=== PATIENT | female | born 1955 | race American Indian/Alaskan Native ===

== ENCOUNTER 2020-09-14 09:22 | Inpatient (IN) | payer MEDICARE ==
[2020-09-14] MEDS ORDERED: DEXTROSE 50% IN WATER (25GM) 50 ML SYRINGE IV ONE ×2 (09:42→17:33)
--- NOTE | 2020-09-14 10:29 | XRay Report ---
CHEST 1 VIEW 09/14/2020 9:23 AM INDICATION / CLINICAL INFORMATION: sob. COMPARISON: None available. FINDINGS: SUPPORT DEVICES: None. HEART / MEDIASTINUM: Cardiomegaly LUNGS / PLEURA: Increased opacity with infiltrate within the right lower lung and right middle lobe N o pneumothorax. Signer Name: Cj Lakhani MD Signed: 09/14/2020 10:25 AM Workstation Name: [id number]
--- NOTE | 2020-09-14 10:37 | Emergency Department Report ---
ED Shortness of Breath HPI - General Chief Complaint: Dyspnea/Respdistress Stated Complaint: WEAKNESS,LOW BLOOD SUGAR Time Seen by Provider: 09/14/20 09:52 Source: patient, EMS Mode of arrival: Stretcher Limitations: Other - History of Present Illness Initial Comments: 65-year-old female, history of hypertension, diabetes, CHF, CAD with coronary bypass, possible A. fib, presents to ED with shortness of breath. Patient transported to the ED via EMS. Accu-Chek was 46, half amp of D50 was given. They were unable to obtain a room air O2 sat. Wheezing was reported by EMS. Patient was given albuterol 5 mg nebulizer treatment prior to arrival. Patient reports 4-day history of cough, shortness of breath, chest pain, vomiting, generalized weakness. She denies fever. She reports loss of smell and taste. Patient states she did not get the COVID-19 vaccine. According to her daughter, patient was recently seen at [facility], possibly 1 week ago, for similar symptoms. Daughter reports her mother drinks alcohol somewhat heavily, also smokes cigarettes. Upon ED arrival, we placed patient on BiPAP. Repeat Accu- Chek was 48, 1 amp of D50 given. MD Complaint: shortness of breath -: days(s) (4) Severity: moderate Consistency: constant Improves With: nothing Worsens With: exertion Known History Of: COPD, congestive heart failure Associated Symptoms: cough Treatments Prior to Arrival: bronchodilator - Related Data Home Oxygen Therapy: No Allergies Allergy/AdvReac Type Severity Reaction Status Date / Time Penicillins Allergy Anaphylaxis Verified 09/14/20 10:15 ED Review of Systems ROS: Stated complaint: WEAKNESS,LOW BLOOD SUGAR Other details as noted in HPI Comment: All other systems reviewed and negative Constitutional: denies: fever ENT: other (Reports loss of smell and taste) Respiratory: cough, shortness of breath Cardiovascular: chest pain Gastrointestinal: vomiting. denies: diarrhea ED Past Medical Hx - Past Medical History Previous Medical History?: Yes Hx Heart Attack/AMI: Yes Hx Congestive Heart Failure: Yes Hx COPD: Yes - Surgical History Past Surgical History?: Yes Additional Surgical History: Bypass - Social History Smoking Status: Never Smoker ED Physical Exam - General Limitations: Other General appearance: alert - Head Head exam: Present: atraumatic, normocephalic - Eye Eye exam: Present: normal appearance, EOMI - ENT ENT exam: Present: mucous membranes moist - Neck Neck exam: Present: normal inspection - Respiratory Respiratory exam: Present: respiratory distress, decreased breath sounds, other (Tachypnea present) - Cardiovascular Cardiovascular Exam: Present: tachycardia, irregular rhythm - GI/Abdominal GI/Abdominal exam: Present: soft. Absent: distended, tenderness - Extremities Exam Extremities exam: Present: other (1+ pitting edema BLE) - Neurological Exam Neurological exam: Present: alert, oriented X3 - Psychiatric Psychiatric exam: Present: normal affect, normal mood - Skin Skin exam: Present: warm, dry, intact, normal color ED Course Vital Signs 09/14/20 09/14/20 09/14/20 09:32 09:39 09:46 Temperature Pulse Rate 105 H 116 H Respiratory 20 18 Rate Blood Pressure 119/93 119/93 119/93 O2 Sat by Pulse 93 95 Oximetry 09/14/20 09/14/20 09/14/20 09:56 10:00 10:16 Temperature 94.9 F L Pulse Rate 103 H 102 H Respiratory 17 18 Rate Blood Pressure 90/63 90/63 O2 Sat by Pulse Oximetry 09/14/20 09/14/20 09/14/20 10:22 11:00 12:51 Temperature Pulse Rate 98 H Respiratory 15 Rate Blood Pressure 121/95 O2 Sat by Pulse 89 98 96 Oximetry - Reevaluation(s) Reevaluation #1: 09/14/20 12:00 Went in re-evaluate patient and she was found to be more lethargic, less arousable. Accu-Chek was done. Glucose found to be 79. Patient has not been registering a reliable pulse ox reading, so ABG was ordered. RT has been unable to obtain an ABG. Due to altered mental status, will intubate the patient. Reevaluation #2: 09/14/20 13:17 Patient was moving into room 22 for intubation. She was found to have a heart rate in the 40s as we were bagging her with a BVM. Patient was given one amp of atropine and then intubated without any additional drugs. Following intubation, patient was pulseless, so ACLS was initiated. Patient received one round of ACLS. She was given epi x1 and sodium bicarb x2, given her bicarb of 7 on her BMP. - Central Line Placement Right Femoral Consent Obtained: verbal consent Time Out Performed: Yes Patient Placed on Monitor/Pulse Ox: Yes MD Prep: mask, gown, gloves Central Line Prep: Chlorhexidine scrub Ultrasound Used for Placement: Yes Central Line Lumen Inserted: triple Reason for Insertion: Volume Resuscitation Bloods Obtained for Lab: No Central Line Position: good blood return, all ports aspirated, flus, sutured in place with nyl Dressing Applied: Tegaderm Patient Tolerated Procedure: well Complications: none - Intubation Time Out Performed: Yes Sedative: none Laryngoscope: fiberoptic video scope Size: 3 ET Tube Size: 7.5 Tube Secured Depth (cm): 22 Tube Secured Location: teeth Tube Placement Confirmation: visualized tube passing t, equal breath sounds bilat, no breath sounds over epi, confirmation by capnometr Patient Tolerated Procedure: well Intubation Complications: none ED Medical Decision Making - Lab Data Result diagrams: 09/14/20 10:41 09/14/20 14:00 - EKG Data -: EKG Interpreted by Sc EKG shows normal: axis, ST-T waves Rate: normal - EKG Data Interpretation: other (Atrial fibrillation; intraventricular conduction delay) - Radiology Data Radiology results: report reviewed, image reviewed - Medical Decision Making 65-year-old female presents to ED with shortness of breath and hyperglycemia. She also reports 4-day history of cough, vomiting, chest pain, loss of smell and taste. Initial chest x-ray showed infiltrates in the right middle and lower lobes. Patient was given Levaquin and placed on Covid precautions. WBCs are normal. Lactic acid elevated at 19. Patient given 30/kg sepsis dosing of IV fluids. Patient had a mental status decline and decision was made to intubate. Patient was bradycardic and received 1 amp of atropine. She then briefly lost pulses and went into cardiac arrest. 1 round of ACLS was performed with administration of epinephrine x1 and sodium bicarb x2. Patient had ROSC afterward. She was hypotensive and placed on Levophed drip. Propofol was ordered for sedation. Remainder of labs show evidence of liver failure, coagulopathy, renal insufficiency. ABG result that is in the chart is most likely a venous sample per respiratory therapist. Patient will be admitted by Dr. Albert, hospitalist, for further management. - Differential Diagnosis CHF, pneumonia, COVID Critical Care Time: Yes Critical care time in (mins) excluding proc time.: 35 Critical care attestation.: If time is entered above; I have spent that time in minutes in the direct care of this critically ill patient, excluding procedure time. Critical Care Time: 35 min ED Disposition Clinical Impression: Hypoglycemia, Acute respiratory failure, Cardiac arrest, Pneumonia, Suspected COVID-19 virus infection, Sepsis, Renal insufficiency, Elevated liver enzymes, Coagulopathy, Metabolic acidosis Disposition: 09 OP ADMIT IP TO THIS HOSP Is pt being admited?: Yes Condition: Stable Time of Disposition: 14:11
[2020-09-14] MEDS ORDERED: dexAMETHasone 4 MG/ML VIAL IV ONE (10:40)
[2020-09-14 11:02] LABS: Mean Corpuscular HGB Conc 29 % (30-34); Mean Corpuscular Volume 104 fl (79-97); Platelet Count 165 K/mm3 (140-440); Red Blood Count 4.09 M/mm3 (3.65-5.03); Red Cell Distribution Width 17.4 % (13.2-15.2)
[2020-09-14 11:15] LABS: Hematocrit 42.4 % (30.3-42.9); Hemoglobin 12.1 gm/dl (10.1-14.3)
[2020-09-14 11:20] LABS: Albumin 3.3 g/dL (3.9-5); Calcium 8.7 mg/dL (8.4-10.2)
[2020-09-14] MEDS ORDERED: ETOMIDATE 20 MG/10 ML INJ IV ONE (12:20)
[2020-09-14] MEDS ORDERED: SUCCINYLCHOLINE CHLORIDE 200 MG/10 ML INJ MDV ONE (12:21)
[2020-09-14] MEDS ORDERED: SODIUM CHLORIDE 0.9% 1000 ML 2,000 ML ONE (12:32)
[2020-09-14] MEDS ORDERED: NORepinephrine/NS 4 MG-250 ML 4 MG/250 ML BAG IV ONE (12:48)
[2020-09-14 13:07] LABS: Chol/HDL Ratio 3.9 %
[2020-09-14] MEDS ORDERED: SODIUM CHLORIDE 0.9% 1000 ML IV SOLN IV ONE (13:11)
--- NOTE | 2020-09-14 13:42 | XRay Report ---
CHEST 1 VIEW INDICATION: post intubation. COMPARISON: Earlier today at 1020 hours FINDINGS: Support devices: An endotracheal tube has been inserted which terminates 6.6 cm superior to the nettie a. Consider advancement by 2 cm. A nasogastric tube has been inserted which is followed to the fundus of the stomach but the distal tip is cut off the [id number]. Heart: Stable cardiomegaly with valvuloplasty. Lungs/Pleura: Subtle infiltration is identified throughout the right lung which could represent conge stive changes or infiltrate. The left lung is generally clear. No pleural effusion or pneumothorax. Additional findings: None. IMPRESSION: Consider advancement of the endotracheal tube by 2 cm as described. Stable cardiomegaly. Subtle infiltration in the right lung most consistent with congestive changes or less likely infiltra te. Signer Name: Saul Marley Jr, MD Signed: 09/14/2020 1:37 PM Workstation Name: [id number]
[2020-09-14 14:21] LABS: Anisocytosis 1+; Band Neutrophils # (Manual) 0.3 K/mm3; Macrocytosis 1+; Myelocytes # (Manual) 0.1 K/mm3; Platelet Estimate Consistent w Auto; Total Cells Counted 100
[2020-09-14 14:40] LABS: INR 4.89 (0.87-1.13)
[2020-09-14] MEDS ORDERED: DOPamine/D5W 800 MG/250 ML 800 MG/250 ML BAG IV ONE (14:53)
--- NOTE | 2020-09-14 15:32 | History and Physical Report ---
History of Present Illness Date of examination: 09/14/20 Date of admission: 09/14/20 14:11 Chief complaint: Shortness of breath and altered sensorium for 1 day History of present illness: 65-year-old -Citizen Of [place] female with history of hypertension, coronary jeanne ry disease, s/p CABG, and COPD brought in by EMS for severe shortness of breath. Patient has been short of breath for the last 3 days as per the daughter who works in the [facility]. Patient has been chronically short of breath for 2 months but was worse for the last 3 days and shortness of breath on minimal exertion and orthopnea present. Patient has not taken Covid vaccination. As per daughter the patient has some loss of smell and taste. No fever. Generalized weakness present. In the EMS patient had a low blood glucose of 46 and was given D50 W half ampule. With patient blood glucose level came up. In the emergency room patient was very lethargic and altered sensorium and very short of breath because of which patient was intubated by the ER physician. Patient was started on IV Levophed for low blood pressure. Her main problem is shortness of breath for the last 2 to 3 days and also fever and cough. - Past Medical History Previous Medical History?: Yes --Heart Attack/AMI: Yes --Congestive Heart Failure: Yes --COPD: Yes - Surgical History Past Surgical History?: Yes Additional Surgical History: Bypass - Social History Smoking Status: Never Smoker -Family history htn Review of Systems ROS: Constitutional fever HEENT no sore throat no post nasal drip no diplopia Neck no neck stiffness no lymph gland enlargement Chest and lungs cough and fever CVS shortness of breath at rest and orthopnea Genitourinary system no dysuria no flank pain Musculoskeletal system no muscle pains no joint pains [employer] MACHINE OPERATOR altered sensorium Skin no rash no itching Psychiatric no depression no homicidal or suicidal tendencies Hematologic no lymphedema or bruising Endocrine no polydipsia no polyuria no cold intolerance no heat intolerance Medications and Allergies Allergies Allergy/AdvReac Type Severity Reaction Status Date / Time Penicillins Allergy Anaphylaxis Verified 09/14/20 10:15 Active Meds: Active Medications Norepinephrine (Levophed Drip 4 Mg/Ns 250 Ml) 4 mg in 250 mls @ 7.5 mls/hr IV TITR LAMAR; Protocol Propofol (Diprivan 10 Mg/Ml) 1,000 mg in 100 mls @ 2.994 mls/hr IV TITR LAMAR; Protocol Sodium Bicarbonate 150 meq/ (Dextrose) 1,150 mls @ 125 mls/hr IV DIRECT LAMAR Exam - Physical Exam Narrative exam: Patient is intubated and on vent - Constitutional Vitals: Temp Pulse Resp BP Pulse Ox 94.9 F L 98 H 15 121/95 96 09/14/20 09:56 09/14/20 11:00 09/14/20 11:00 09/14/20 11:00 09/14/20 12:51 General appearance: Present: severe distress, well-nourished - EENT Eyes: Present: PERRL ENT: hearing intact, clear oral mucosa - Neck Neck: Present: supple, normal ROM - Respiratory Respiratory effort: normal Respiratory: bilateral: CTA - Cardiovascular Heart rate: 98 Rhythm: regular Heart Sounds: Present: S1 & S2. 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 Should be admitted Results - Labs CBC & Chem 7: 09/15/20 05:44 09/14/20 21:39 Labs: Laboratory Last Values WBC 7.9 K/mm3 (4.5-11.0) 09/14/20 10:41 RBC 4.09 M/mm3 (3.65-5.03) 09/14/20 10:41 Hgb 12.1 gm/dl (10.1-14.3) 09/14/20 10:41 Hct 42.4 % (30.3-42.9) 09/14/20 10:41 MCV 104 fl (79-97) H 09/14/20 10:41 MCH 30 pg (28-32) 09/14/20 10:41 MCHC 29 % (30-34) L 09/14/20 10:41 RDW 17.4 % (13.2-15.2) H 09/14/20 10:41 Plt Count 165 K/mm3 (140-440) 09/14/20 10:41 Add Manual Diff Complete 09/14/20 10:41 Total Counted 100 09/14/20 10:41 Seg Neuts % (Manual) 81.0 % (40.0-70.0) H 09/14/20 10:41 Band Neutrophils % 4.0 % 09/14/20 10:41 Lymphocytes % (Manual) 10.0 % (13.4-35.0) L 09/14/20 10:41 Monocytes % (Manual) 1.0 % (0.0-7.3) 09/14/20 10:41 Eosinophils % (Manual) 2.0 % (0.0-4.3) 09/14/20 10:41 Basophils % (Manual) 1.0 % (0.0-1.8) 09/14/20 10:41 Myelocytes % 1.0 % 09/14/20 10:41 Nucleated RBC % Not Reportable 09/14/20 10:41 Seg Neutrophils # Man 6.4 K/mm3 (1.8-7.7) 09/14/20 10:41 Band Neutrophils # 0.3 K/mm3 09/14/20 10:41 Lymphocytes # (Manual) 0.8 K/mm3 (1.2-5.4) L 09/14/20 10:41 Abs React Lymphs (Man) 0.0 K/mm3 09/14/20 10:41 Monocytes # (Manual) 0.1 K/mm3 (0.0-0.8) 09/14/20 10:41 Eosinophils # (Manual) 0.2 K/mm3 (0.0-0.4) 09/14/20 10:41 Basophils # (Manual) 0.1 K/mm3 (0.0-0.1) 09/14/20 10:41 Metamyelocytes # 0.0 K/mm3 09/14/20 10:41 Myelocytes # 0.1 K/mm3 09/14/20 10:41 Promyelocytes # 0.0 K/mm3 09/14/20 10:41 Blast Cells # 0.0 K/mm3 09/14/20 10:41 WBC Morphology Not Reportable 09/14/20 10:41 Hypersegmented Neuts Not Reportable 09/14/20 10:41 Hyposegmented Neuts Not Reportable 09/14/20 10:41 Hypogranular Neuts Not Reportable 09/14/20 10:41 Smudge Cells Not Reportable 09/14/20 10:41 Toxic Granulation Not Reportable 09/14/20 10:41 Toxic Vacuolation Not Reportable 09/14/20 10:41 Dohle Bodies Not Reportable 09/14/20 10:41 Pelger-Huet Anomaly Not Reportable 09/14/20 10:41 Bukc Rods Not Reportable 09/14/20 10:41 Platelet Estimate Consistent w auto 09/14/20 10:41 Clumped Platelets Not Reportable 09/14/20 10:41 Plt Clumps, EDTA Not Reportable 09/14/20 10:41 Large Platelets Not Reportable 09/14/20 10:41 Giant Platelets Not Reportable 09/14/20 10:41 Platelet Satelliting Not Reportable 09/14/20 10:41 Plt Morphology Comment Not Reportable 09/14/20 10:41 RBC Morphology Not Reportable 09/14/20 10:41 Dimorphic RBCs Not Reportable 09/14/20 10:41 Polychromasia Not Reportable 09/14/20 10:41 Hypochromasia Not Reportable 09/14/20 10:41 Poikilocytosis Not Reportable 09/14/20 10:41 Anisocytosis 1+ 09/14/20 10:41 Microcytosis Not Reportable 09/14/20 10:41 Macrocytosis 1+ 09/14/20 10:41 Spherocytes Not Reportable 09/14/20 10:41 Pappenheimer Bodies Not Reportable 09/14/20 10:41 Sickle Cells Not Reportable 09/14/20 10:41 Target Cells Not Reportable 09/14/20 10:41 Tear Drop Cells Not Reportable 09/14/20 10:41 Ovalocytes Not Reportable 09/14/20 10:41 Helmet Cells Not Reportable 09/14/20 10:41 [place] Bodies Not Reportable 09/14/20 10:41 Rickman Rings Not Reportable 09/14/20 10:41 Shai Cells Not Reportable 09/14/20 10:41 Bite Cells Not Reportable 09/14/20 10:41 Crenated Cell Not Reportable 09/14/20 10:41 Elliptocytes Not Reportable 09/14/20 10:41 Acanthocytes (Spur) Not Reportable 09/14/20 10:41 Rouleaux Not Reportable 09/14/20 10:41 Hemoglobin C Crystals Not Reportable 09/14/20 10:41 Schistocytes Not Reportable 09/14/20 10:41 Malaria parasites Not Reportable 09/14/20 10:41 Phil Bodies Not Reportable 09/14/20 10:41 Hem Pathologist Commnt No 09/14/20 10:41 PT 45.5 Sec. (12.2-14.9) H 09/14/20 14:00 INR 4.89 (0.87-1.13) H 09/14/20 14:00 APTT 47.4 Sec. (24.2-36.6) H 09/14/20 10:41 Sodium 136 mmol/L (137-145) L 09/14/20 14:00 Potassium 3.8 mmol/L (3.6-5.0) 09/14/20 14:00 Chloride 91.3 mmol/L (98-107) L 09/14/20 14:00 Carbon Dioxide 6 mmol/L (22-30) L* 09/14/20 14:00 Anion Gap 43 mmol/L 09/14/20 14:00 BUN 15 mg/dL (7-17) 09/14/20 14:00 Creatinine 2.3 mg/dL (0.6-1.2) H 09/14/20 14:00 Estimated GFR 26 ml/min 09/14/20 14:00 BUN/Creatinine Ratio 7 % 09/14/20 14:00 Glucose 100 mg/dL (65-100) 09/14/20 14:00 POC Glucose 85 mg/dL (70-105) 09/14/20 12:46 Lactic Acid 19.70 mmol/L (0.7-2.0) H* 09/14/20 14:00 Calcium 8.0 mg/dL (8.4-10.2) L 09/14/20 14:00 Total Bilirubin 3.20 mg/dL (0.1-1.2) H 09/14/20 10:41 AST 226 units/L (5-40) H 09/14/20 10:41 ALT 105 units/L (7-56) H 09/14/20 10:41 Alkaline Phosphatase 149 units/L (35-129) H 09/14/20 10:41 Ammonia 301.0 umol/L (25-60) H 09/14/20 14:00 Troponin T 0.034 ng/mL (0.00-0.029) H 09/14/20 10:41 NT-Pro-B Natriuret Pep 89389 pg/mL (0-900) H 09/14/20 10:41 Total Protein 6.4 g/dL (6.3-8.2) 09/14/20 10:41 Albumin 3.3 g/dL (3.9-5) L 09/14/20 10:41 Albumin/Globulin Ratio 1.1 % 09/14/20 10:41 Triglycerides 168 mg/dL (2-149) H 09/14/20 10:41 Cholesterol 117 mg/dL (50-199) 09/14/20 10:41 LDL Cholesterol Direct 98 mg/dL (50-130) 09/14/20 10:41 HDL Cholesterol 30 mg/dL (40-59) L 09/14/20 10:41 Cholesterol/HDL Ratio 3.90 % 09/14/20 10:41 Lipase 15 units/L (13-60) 09/14/20 10:41 Microbiology: Microbiology 09/14/20 10:41 Peripheral/Venous Blood Culture - Preliminary Culture in Progress 09/14/20 10:41 Peripheral/Venous Blood Culture - Preliminary Culture in Progress - Imaging and Cardiology EKG: report reviewed (Atrial fibrillation heart rate of 97/min) Chest x-ray: report reviewed Imaging and Cardiology: Chest x-ray Increased opacity with infiltrate within the right lower lung and right middle lobe. No pneumothorax. Contrast radiology report occurs Assessment and Plan Assessment and plan: Critical care statement The high probability OF a clinically significant sudden or life-threatening dete rioration of the cardiorespiratory system and endocrine system required my full and direct attention, intervention and postoperative management. The aggregate critical care time was 40 minutes. The time is in addition to time spent performing reported procedures but includes the followin: Data review and interpretation 2: Patient assessment and monitoring of vital signs 3: Documentation 4:: Medication orders and management Advance Directives: Yes (Full code) VTE prophylaxis?: Chemical Plan of care discussed with patient/family: Yes - Patient Problems (1) Septic shock Current Visit: Yes Status: Acute Plan to address problem: Patient on IV cefepime IV vancomycin and Levophed Poor prognosis because of ulcer and deterioration over 1 day and severe metabolic acidosis (2) DIC (disseminated intravascular coagulation) Current Visit: Yes Status: Acute Plan to address problem: Patient is a high PT/INR INR I will lower GI bleed Possible DIC Heme-onc emergently consulted Transfuse as necessary Poor prognosis (3) Acute respiratory failure with hypoxia Current Visit: Yes Status: Acute Plan to address problem: Multifactorial. Secondary to right-sided pneumonia and underlying CHF and COPD IV antibiotics and IV diuretics for now Rule out Covid pneumonia (4) Right lower lobe pneumonia Current Visit: Yes Status: Acute Plan to address problem: Possible aspiration Patient started on broad-spectrum antibiotics IV cefepime and IV vancomycin (5) Metabolic acidosis Current Visit: Yes Status: Acute Plan to address problem: Treatment of sepsis should improve the metabolic acidosis Bicarb drip initiated (6) Suspected COVID-19 virus infection Current Visit: Yes Status: Acute Plan to address problem: Coronavirus PCR requested (7) Hypotension Current Visit: Yes Status: Acute Plan to address problem: On Levophed and dopamine (8) Hypoglycemia Current Visit: Yes Status: Acute Plan to address problem: Sepsis may be the cause of hypoglycemia D5W normal saline as IV and fluids at 75 cc an hour (9) Elevated liver enzymes Current Visit: Yes Status: Acute Plan to address problem: Transaminitis probably secondary to shock liver AST is 226, ALT is 103 total bili 3.2 and alk phos is around 140. (10) Hyponatremia Current Visit: Yes Status: Acute Plan to address problem: Patient on normal saline for now. To monitor closely in view of CHF (11) Hypothermia Current Visit: Yes Status: Acute Qualifiers: Encounter type: initial encounter Qualified Code(s): T68.XXXA - Hypothermia, initial encounter Plan to address problem: Secondary to sepsis Prognosis is poor (12) Congestive heart failure Current Visit: Yes Status: Acute Plan to address problem: echocardiogram for ejection fraction Lasix as needed (13) DVT prophylaxis Current Visit: Yes Status: Acute Plan to address problem: On heparin and GI prophylaxis
[2020-09-14] MEDS ORDERED: SODIUM BICARBONATE 150 MEQ in DEXTROSE 5% IN WATER 1,000 ML IV SCH (16:00)
[2020-09-14] MEDS ORDERED: MORPHINE 2 MG/1 ML INJ IV PRN (17:30)
[2020-09-14] MEDS ORDERED: ONDANSETRON 4 MG/2 ML INJ IV PRN (17:30)
[2020-09-14] MEDS ORDERED: ACETAMINOPHEN 325 MG TAB PO PRN (17:30)
[2020-09-14] MEDS ORDERED: METOCLOPRAMIDE 10 MG/2 ML INJ IV PRN (17:30)
[2020-09-14] MEDS ORDERED: HYDROmorphone 1 MG/1 ML INJ IV PRN (17:30)
[2020-09-14] MEDS ORDERED: IPRATROPIUM/ALBUTEROL SULFATE 3 ML AMPUL.NEB IH PRN (17:39)
[2020-09-14 17:43] LABS: Bacteria,Urine 2+ /HPF (Negative); Bilirubin,Urine NEG (Negative); Blood,Urine LG (Negative); Color,Urine Red (Yellow)
[2020-09-14] MEDS ORDERED: ALBUTEROL 2.5 MG/3 ML NEBU IH PRN (17:44)
[2020-09-14 17:49] LABS: Protein,Urine >500 mg/dL (Negative); RBC,Urine > 182.0 /HPF (0.0-6.0)
[2020-09-14 17:50] LABS: WBC,Urine > 182.0 /HPF (0.0-6.0)
[2020-09-14] MEDS ORDERED: D5W/0.9% NACL 1,000 ML IV SCH (18:00)
[2020-09-14] MEDS ORDERED: CEFEPIME/NS 1 GM/100 ML 1 GM/100 ML BAG IV SCH (18:00)
[2020-09-14 19:11] LABS: Mean Corpuscular HGB Conc 27 % (30-34); Mean Corpuscular Volume 110 fl (79-97); Platelet Count 137 K/mm3 (140-440); Red Blood Count 4.47 M/mm3 (3.65-5.03); Red Cell Distribution Width 17.7 % (13.2-15.2)
[2020-09-14 19:19] LABS: Hematocrit 49.1 % (30.3-42.9); Hemoglobin 13.1 gm/dl (10.1-14.3)
[2020-09-14 19:37] LABS: Albumin 2.7 g/dL (3.9-5)
[2020-09-14 20:00] LABS: Myelocytes # (Manual) 0.7 K/mm3; Total Cells Counted 100
[2020-09-14 20:01] LABS: Anisocytosis 1+; Toxic Granulation 2+; Toxic Vacuolation 1+
[2020-09-14 20:02] LABS: Platelet Estimate Consistent w Auto
[2020-09-14] MEDS ORDERED: SODIUM CHLORIDE 0.9% 1000 ML 1,000 ML ONE (21:09)
[2020-09-14] MEDS ORDERED: PHENYLEPHRINE 10 MG/1 ML INJ SDV IV SCH (21:30)
[2020-09-14] MEDS ORDERED: PHENYLEPHRINE 100 MG in SODIUM CHLORIDE 0.9% 90 ML IV ONE (21:33)
--- NOTE | 2020-09-14 21:50 | Event Note ---
Date: 09/14/20 Patient was coded at 9:21 PM. Patient was found unresponsive CPR was given as per ACLS protocol. 2 epi was given. Patient is on bicarb drip. Patient regained pulse 58 and BP was 90/50. Patient has rectal bleeding. Patient was put on Levophed, vasopressin and neodrip. Patient was put on bicarb and Protonix drip. GI is consulted. CBC CMP PT/INR ABG is ordered. Prognosis is guarded. Case discussed with that daughter Rancho and explained about the poor prognosis of the patient that patient is dropping heartbeat and blood pressure and patient can . She understands everything but she wants everything to be done. Patient is a full code. Case discussed with critical care.
[2020-09-14] MEDS: VASOPRESSIN 20 UNIT in SODIUM CHLORIDE 0.9% 100 ML IV SCH (21:53)
[2020-09-14] MEDS ORDERED: PANTOPRAZOLE 40 MG INJ IV SCH (22:00)
[2020-09-14] MEDS ORDERED: HEPARIN 5,000 UNIT/1 ML VIAL SUB-Q SCH (22:00)
[2020-09-14] MEDS ORDERED: FAMOTIDINE 20 MG/2 ML INJ IV SCH (22:00)
[2020-09-14 22:02] LABS: Hematocrit 37.1 % (30.3-42.9); Hemoglobin 9.9 gm/dl (10.1-14.3); Mean Corpuscular HGB Conc 27 % (30-34); Mean Corpuscular Volume 108 fl (79-97); Platelet Count 114 K/mm3 (140-440); Red Blood Count 3.43 M/mm3 (3.65-5.03); Red Cell Distribution Width 17.5 % (13.2-15.2)
[2020-09-14 22:14] LABS: INR 13.56 (0.87-1.13)
[2020-09-14 22:15] LABS: Partial Thromboplastin Time 115.3 Sec. (24.2-36.6)
[2020-09-14] MEDS: PANTOPRAZOLE 80 MG in SODIUM CHLORIDE 0.9% 100 ML IV SCH (22:34)
[2020-09-14 22:59] LABS: Albumin 2.2 g/dL (3.9-5); Calcium 6.3 mg/dL (8.4-10.2)
[2020-09-14] MEDS ORDERED: PHYTONADIONE(ADULT ONLY) 10 MG in SODIUM CHLORIDE 0.9% 50 ML IV ONE (23:23)
[2020-09-14] MEDS ORDERED: EPINEPHrine 1 MG/1 ML 8 MG in SODIUM CHLORIDE 0.9% 250ML 242 ML IV SCH ×2 (23:45)
[2020-09-15] MEDS: DOPamine/D5W 800 MG/250 ML 800 MG/250 ML BAG IV SCH ×2 (00:14→06:31)
[2020-09-15] MEDS: NORepinephrine/NS 4 MG-250 ML 4 MG/250 ML BAG IV SCH ×4 (00:15→06:43)
[2020-09-15] MEDS ORDERED: SODIUM CHLORIDE 0.9% 1000 ML 1,000 ML ONE ×2 (00:49→05:13)
[2020-09-15] MEDS ORDERED: SODIUM CHLORIDE 0.9% 500 ML 500 ML ONE (01:00)
[2020-09-15 01:51] LABS: Hematocrit 39.8 % (30.3-42.9); Hemoglobin 10.8 gm/dl (10.1-14.3)
[2020-09-15] MEDS ORDERED: SODIUM CHLORIDE 0.9% 1000 ML IV SOLN IV ONE (02:36)
[2020-09-15] MEDS: ATROPINE 0.1% (1 MG/10 ML) CARDIAC SYRINGE IV PRN ×4 (02:50→04:33)
[2020-09-15] MEDS ORDERED: PHENYLEPHRINE 10 MG/1 ML INJ SDV IV SCH (03:30)
[2020-09-15] MEDS ORDERED: PHENYLEPHRINE 100 MG in SODIUM CHLORIDE 0.9% 90 ML IV SCH (03:45)
--- NOTE | 2020-09-15 04:04 | Hem/Onc Consultation ---
History of Present Illness - History of Present Illness HEME DATA REVIEW asked by Dr. Bills to review case for DIC picture since then s/pp code blue 65yo AA woman with CAD (s/p CABG) adm for SOb and confusion found to have impressive elevated liver enzymes and coagulopathy no overt bleeding; hypoglycemia found since admission intubated, now on vent, now s/p CPR DATA reviewed below: IMP: Shock liver, liver dysfunction not "DIC" but still severe coagulopathy r/o bacteremia REC: labs to include fibrinogen cosnider cryo transfusions for low fibrinogen Laboratory Last Values WBC 23.0 K/mm3 (4.5-11.0) H 09/14/20 21:30 Hgb 9.9 gm/dl (10.1-14.3) L D 09/14/20 21:30 Hct 37.1 % (30.3-42.9) D 09/14/20 21:30 Plt Count 114 K/mm3 (140-440) L 09/14/20 21:30 PT 98.0 Sec. (12.2-14.9) H 09/14/20 21:39 INR 13.56 (0.87-1.13) H* 09/14/20 21:39 APTT 115.3 Sec. (24.2-36.6) H* 09/14/20 21:39 Creatinine 2.7 mg/dL (0.6-1.2) H 09/14/20 21:39 Lactic Acid 19.40 mmol/L (0.7-2.0) H* 09/14/20 21:39 Total Bilirubin 2.70 mg/dL (0.1-1.2) H 09/14/20 21:39 AST 4007 units/L (5-40) H 09/14/20 21:39 ALT 1583 units/L (7-56) H 09/14/20 21:39 Alkaline Phosphatase 139 units/L (35-129) H 09/14/20 21:39 Ammonia 301.0 umol/L (25-60) H 09/14/20 14:00 Antibody Screen Negative 09/14/20 21:39 Medications and Allergies Allergies Allergy/AdvReac Type Severity Reaction Status Date / Time Penicillins Allergy Anaphylaxis Verified 09/14/20 10:15 Active Meds: Active Medications Acetaminophen (Acetaminophen 325 Mg Tab) 650 mg PO Q4H PRN PRN Reason: Pain MILD(1-3)/Fever >100.5/SNELL Albuterol (Albuterol 2.5 Mg/3 Ml Nebu) 2.5 mg IH Q3HRT PRN PRN Reason: Wheezing Atropine Sulfate (Atropine 0.1% (1 Mg/10 Ml) Cardiac Syringe) 1 mg IV PRN PRN PRN Reason: Bradycardia Last Admin: 09/15/20 02:50 Dose: 1 mg Documented by: Famotidine (Famotidine 20 Mg/2 Ml Inj) 10 mg IV BID LAMAR Hydromorphone HCl (Hydromorphone 1 Mg/1 Ml Inj) 0.5 mg IV Q3H PRN PRN Reason: Pain , Severe (7-10) Norepinephrine (Levophed Drip 4 Mg/Ns 250 Ml) 4 mg in 250 mls @ 7.5 mls/hr IV TITR LAMAR; Protocol Last Admin: 09/15/20 02:08 Dose: 30 mcg/min, 112.5 mls/hr Documented by: Propofol (Diprivan 10 Mg/Ml) 1,000 mg in 100 mls @ 2.994 mls/hr IV TITR LAMAR; Protocol Sodium Bicarbonate 150 meq/ (Dextrose) 1,150 mls @ 125 mls/hr IV DIRECT LAMAR Dopamine HCl/Dextrose (Intropin Drip 800 Mg/D5w 250 Ml) 800 mg in 250 mls @ 3.742 mls/hr IV TITR LAMAR; Protocol Last Admin: 09/15/20 00:14 Dose: 20 mcg/kg/min, 37.421 mls/hr Documented by: Dextrose/Sodium Chloride (D5ns) 1,000 mls @ 75 mls/hr IV DIRECT LAMAR Cefepime HCl (Cefepime/Ns 1 Gm/100 Ml) 1 gm in 100 mls @ 200 mls/hr IV Q12H LAMAR; Protocol Last Admin: 09/14/20 18:20 Dose: 200 mls/hr Documented by: Vasopressin 20 unit/ Sodium (Chloride) 101 mls @ 9.09 mls/hr IV TITR LAMAR; Protocol Last Admin: 09/14/20 21:53 Dose: 0.03 units/min, 9.09 mls/hr Documented by: Phenylephrine HCl 100 mg/ (Sodium Chloride) 100 mls @ 3 mls/hr IV TITR ONE; Protocol Stop: 09/16/20 06:52 Last Titration: 09/15/20 02:37 Dose: 330 mcg/min, 19.8 mls/hr Documented by: Pantoprazole Sodium 80 mg/ (Sodium Chloride) 100 mls @ 10 mls/hr IV DIRECT LAMAR Last Admin: 09/14/20 22:34 Dose: 8 mg/hr, 10 mls/hr Documented by: Epinephrine 8 mg/ Sodium (Chloride) 250 mls @ 0 mls/hr IV TITR LAMAR Last Admin: 09/15/20 00:16 Dose: 1 mls/hr Documented by: Phenylephrine HCl 100 mg/ (Sodium Chloride) 100 mls @ 3 mls/hr IV TITR LAMAR; Protocol Metoclopramide HCl (Metoclopramide 10 Mg/2 Ml Inj) 10 mg IV Q6H PRN PRN Reason: Nausea And Vomiting Morphine Sulfate (Morphine 2 Mg/1 Ml Inj) 2 mg IV Q4H PRN PRN Reason: Pain, Moderate (4-6) Ondansetron HCl (Ondansetron 4 Mg/2 Ml Inj) 4 mg IV Q3H PRN PRN Reason: Nausea And Vomiting Sodium Chloride (Sodium Chloride 0.9% 10 Ml Flush Syringe) 10 ml IV BID LAMAR Last Admin: 09/14/20 22:09 Dose: 10 ml Documented by: Sodium Chloride (Sodium Chloride 0.9% 10 Ml Flush Syringe) 10 ml IV PRN PRN PRN Reason: LINE FLUSH Exam - Constitutional Vitals: Last Vital Signs Temp 95.7 F L 09/14/20 23:48 Pulse 49 L 09/15/20 01:00 Resp 28 H 09/15/20 01:00 BP 126/60 09/15/20 01:00 Pulse Ox 84 09/15/20 01:00 Results - Labs lab Results: Laboratory Results - last 24 hr 09/14/20 09/14/20 09/14/20 01:42 09:40 10:40 WBC RBC Hgb 10.8 Hct 39.8 MCV MCH MCHC RDW Plt Count Add Manual Diff Total Counted Seg Neuts % (Manual) Band Neutrophils % Lymphocytes % (Manual) Monocytes % (Manual) Eosinophils % (Manual) Basophils % (Manual) Metamyelocytes % Myelocytes % Nucleated RBC % Seg Neutrophils # Man Band Neutrophils # Lymphocytes # (Manual) Abs React Lymphs (Man) Monocytes # (Manual) Eosinophils # (Manual) Basophils # (Manual) Metamyelocytes # Myelocytes # Promyelocytes # Blast Cells # WBC Morphology Hypersegmented Neuts Hyposegmented Neuts Hypogranular Neuts Smudge Cells Toxic Granulation Toxic Vacuolation Dohle Bodies Pelger-Huet Anomaly Buck Rods Platelet Estimate Clumped Platelets Plt Clumps, EDTA Large Platelets Giant Platelets Platelet Satelliting Plt Morphology Comment RBC Morphology Dimorphic RBCs Polychromasia Hypochromasia Poikilocytosis Anisocytosis Microcytosis Macrocytosis Spherocytes Pappenheimer Bodies Sickle Cells Target Cells Tear Drop Cells Ovalocytes Helmet Cells [place] Bodies [place] Rings [place] Cells Bite Cells Crenated Cell Elliptocytes Acanthocytes (Spur) Rouleaux Hemoglobin C Crystals Schistocytes Malaria parasites Phil Bodies Hem Pathologist Commnt PT INR APTT ABG pH POC ABG pCO2 POC ABG pO2 POC ABG HCO3 ABG O2 Saturation POC ABG Base Excess ABG Hemoglobin ABG Oxyhemoglobin ABG Methemoglobin ABG Sodium ABG Potassium ABG Chloride ABG Glucose Carboxyhemoglobin FiO2 % Sodium Potassium Chloride Carbon Dioxide Anion Gap BUN Creatinine Estimated GFR BUN/Creatinine Ratio Glucose POC Glucose 48 L 179 H Hemoglobin A1c Lactic Acid Calcium Total Bilirubin AST ALT Alkaline Phosphatase Ammonia Troponin T NT-Pro-B Natriuret Pep Total Protein Albumin Albumin/Globulin Ratio Triglycerides Cholesterol LDL Cholesterol Direct HDL Cholesterol Cholesterol/HDL Ratio Lipase Arterial Blood Glucose Arterial Blood Ionized Calcium Urine Color Urine Turbidity Urine pH Ur Specific [place] Urine Protein Urine Glucose (UA) Urine Ketones Urine Blood Urine Nitrite Urine Bilirubin Urine Urobilinogen Ur Leukocyte Esterase Urine WBC (Auto) Urine RBC (Auto) U Epithel Cells (Auto) Urine Bacteria (Auto) Urine WBC Clumps Blood Type Antibody Screen 09/14/20 09/14/20 09/14/20 10:41 10:41 10:41 WBC 7.9 RBC 4.09 Hgb 12.1 Hct 42.4 MCV 104 H MCH 30 MCHC 29 L RDW 17.4 H Plt Count 165 Add Manual Diff Complete Total Counted 100 Seg Neuts % (Manual) 81.0 H Band Neutrophils % 4.0 Lymphocytes % (Manual) 10.0 L Monocytes % (Manual) 1.0 Eosinophils % (Manual) 2.0 Basophils % (Manual) 1.0 Metamyelocytes % Myelocytes % 1.0 Nucleated RBC % Not Reportable Seg Neutrophils # Man 6.4 Band Neutrophils # 0.3 Lymphocytes # (Manual) 0.8 L Abs React Lymphs (Man) 0.0 Monocytes # (Manual) 0.1 Eosinophils # (Manual) 0.2 Basophils # (Manual) 0.1 Metamyelocytes # 0.0 Myelocytes # 0.1 Promyelocytes # 0.0 Blast Cells # 0.0 WBC Morphology Not Reportable Hypersegmented Neuts Not Reportable Hyposegmented Neuts Not Reportable Hypogranular Neuts Not Reportable Smudge Cells Not Reportable Toxic Granulation Not Reportable Toxic Vacuolation Not Reportable Dohle Bodies Not Reportable Pelger-Huet Anomaly Not Reportable Buck Rods Not Reportable Platelet Estimate Consistent w auto Clumped Platelets Not Reportable Plt Clumps, EDTA Not Reportable Large Platelets Not Reportable Giant Platelets Not Reportable Platelet Satelliting Not Reportable Plt Morphology Comment Not Reportable RBC Morphology Not Reportable Dimorphic RBCs Not Reportable Polychromasia Not Reportable Hypochromasia Not Reportable Poikilocytosis Not Reportable Anisocytosis 1+ Microcytosis Not Reportable Macrocytosis 1+ Spherocytes Not Reportable Pappenheimer Bodies Not Reportable Sickle Cells Not Reportable Target Cells Not Reportable Tear Drop Cells Not Reportable Ovalocytes Not Reportable Helmet Cells Not Reportable [place] Bodies Not Reportable [place] Rings Not Reportable [place] Cells Not Reportable Bite Cells Not Reportable Crenated Cell Not Reportable Elliptocytes Not Reportable Acanthocytes (Spur) Not Reportable Rouleaux Not Reportable Hemoglobin C Crystals Not Reportable Schistocytes Not Reportable Malaria parasites Not Reportable Phil Bodies Not Reportable Hem Pathologist Commnt No PT INR APTT 47.4 H ABG pH POC ABG pCO2 POC ABG pO2 POC ABG HCO3 ABG O2 Saturation POC ABG Base Excess ABG Hemoglobin ABG Oxyhemoglobin ABG Methemoglobin ABG Sodium ABG Potassium ABG Chloride ABG Glucose Carboxyhemoglobin FiO2 % Sodium 131 L Potassium 3.9 Chloride 88.0 L Carbon Dioxide 7 L* Anion Gap 43 BUN 15 Creatinine 2.4 H Estimated GFR 25 BUN/Creatinine Ratio 6 Glucose 172 H POC Glucose Hemoglobin A1c Lactic Acid Calcium 8.7 Total Bilirubin 3.20 H AST 226 H ALT 105 H Alkaline Phosphatase 149 H Ammonia Troponin T 0.034 H NT-Pro-B Natriuret Pep Total Protein 6.4 Albumin 3.3 L Albumin/Globulin Ratio 1.1 Triglycerides 168 H Cholesterol 117 LDL Cholesterol Direct 98 HDL Cholesterol 30 L Cholesterol/HDL Ratio 3.90 Lipase Arterial Blood Glucose Arterial Blood Ionized Calcium Urine Color Urine Turbidity Urine pH Ur Specific [place] Urine Protein Urine Glucose (UA) Urine Ketones Urine Blood Urine Nitrite Urine Bilirubin Urine Urobilinogen Ur Leukocyte Esterase Urine WBC (Auto) Urine RBC (Auto) U Epithel Cells (Auto) Urine Bacteria (Auto) Urine WBC Clumps Blood Type Antibody Screen 09/14/20 09/14/20 09/14/20 10:41 10:41 10:46 WBC RBC Hgb Hct MCV MCH MCHC RDW Plt Count Add Manual Diff Total Counted Seg Neuts % (Manual) Band Neutrophils % Lymphocytes % (Manual) Monocytes % (Manual) Eosinophils % (Manual) Basophils % (Manual) Metamyelocytes % Myelocytes % Nucleated RBC % Seg Neutrophils # Man Band Neutrophils # Lymphocytes # (Manual) Abs React Lymphs (Man) Monocytes # (Manual) Eosinophils # (Manual) Basophils # (Manual) Metamyelocytes # Myelocytes # Promyelocytes # Blast Cells # WBC Morphology Hypersegmented Neuts Hyposegmented Neuts Hypogranular Neuts Smudge Cells Toxic Granulation Toxic Vacuolation Dohle Bodies Pelger-Huet Anomaly Buck Rods Platelet Estimate Clumped Platelets Plt Clumps, EDTA Large Platelets Giant Platelets Platelet Satelliting Plt Morphology Comment RBC Morphology Dimorphic RBCs Polychromasia Hypochromasia Poikilocytosis Anisocytosis Microcytosis Macrocytosis Spherocytes Pappenheimer Bodies Sickle Cells Target Cells Tear Drop Cells Ovalocytes Helmet Cells [place] Bodies [place] Rings [place] Cells Bite Cells Crenated Cell Elliptocytes Acanthocytes (Spur) Rouleaux Hemoglobin C Crystals Schistocytes Malaria parasites Phil Bodies Hem Pathologist Commnt PT INR APTT ABG pH 6.694 L POC ABG pCO2 53.7 H POC ABG pO2 33.9 L POC ABG HCO3 6.4 ABG O2 Saturation 32.0 POC ABG Base Excess -30.0 ABG Hemoglobin 12.4 ABG Oxyhemoglobin 31.8 L ABG Methemoglobin 0.3 ABG Sodium 137.3 ABG Potassium 4.0 ABG Chloride 99.0 ABG Glucose 76 Carboxyhemoglobin 0.4 L FiO2 % 100.0 Sodium Potassium Chloride Carbon Dioxide Anion Gap BUN Creatinine Estimated GFR BUN/Creatinine Ratio Glucose POC Glucose Hemoglobin A1c Lactic Acid 19.60 H* Calcium Total Bilirubin AST ALT Alkaline Phosphatase Ammonia Troponin T NT-Pro-B Natriuret Pep 99958 H Total Protein Albumin Albumin/Globulin Ratio Triglycerides Cholesterol LDL Cholesterol Direct HDL Cholesterol Cholesterol/HDL Ratio Lipase 15 Arterial Blood Glucose 76 Arterial Blood Ionized Calcium Urine Color Urine Turbidity Urine pH Ur Specific [place] Urine Protein Urine Glucose (UA) Urine Ketones Urine Blood Urine Nitrite Urine Bilirubin Urine Urobilinogen Ur Leukocyte Esterase Urine WBC (Auto) Urine RBC (Auto) U Epithel Cells (Auto) Urine Bacteria (Auto) Urine WBC Clumps Blood Type Antibody Screen 09/14/20 09/14/20 09/14/20 12:09 12:46 14:00 WBC RBC Hgb Hct MCV MCH MCHC RDW Plt Count Add Manual Diff Total Counted Seg Neuts % (Manual) Band Neutrophils % Lymphocytes % (Manual) Monocytes % (Manual) Eosinophils % (Manual) Basophils % (Manual) Metamyelocytes % Myelocytes % Nucleated RBC % Seg Neutrophils # Man Band Neutrophils # Lymphocytes # (Manual) Abs React Lymphs (Man) Monocytes # (Manual) Eosinophils # (Manual) Basophils # (Manual) Metamyelocytes # Myelocytes # Promyelocytes # Blast Cells # WBC Morphology Hypersegmented Neuts Hyposegmented Neuts Hypogranular Neuts Smudge Cells Toxic Granulation Toxic Vacuolation Dohle Bodies Pelger-Huet Anomaly Buck Rods Platelet Estimate Clumped Platelets Plt Clumps, EDTA Large Platelets Giant Platelets Platelet Satelliting Plt Morphology Comment RBC Morphology Dimorphic RBCs Polychromasia Hypochromasia Poikilocytosis Anisocytosis Microcytosis Macrocytosis Spherocytes Pappenheimer Bodies Sickle Cells Target Cells Tear Drop Cells Ovalocytes Helmet Cells [place] Bodies [place] Rings Shai Cells Bite Cells Crenated Cell Elliptocytes Acanthocytes (Spur) Rouleaux Hemoglobin C Crystals Schistocytes Malaria parasites Phil Bodies Hem Pathologist Commnt PT INR APTT ABG pH POC ABG pCO2 POC ABG pO2 POC ABG HCO3 ABG O2 Saturation POC ABG Base Excess ABG Hemoglobin ABG Oxyhemoglobin ABG Methemoglobin ABG Sodium ABG Potassium ABG Chloride ABG Glucose Carboxyhemoglobin FiO2 % Sodium Potassium Chloride Carbon Dioxide Anion Gap BUN Creatinine Estimated GFR BUN/Creatinine Ratio Glucose POC Glucose 79 85 Hemoglobin A1c Lactic Acid 19.70 H* Calcium Total Bilirubin AST ALT Alkaline Phosphatase Ammonia Troponin T NT-Pro-B Natriuret Pep Total Protein Albumin Albumin/Globulin Ratio Triglycerides Cholesterol LDL Cholesterol Direct HDL Cholesterol Cholesterol/HDL Ratio Lipase Arterial Blood Glucose Arterial Blood Ionized Calcium Urine Color Urine Turbidity Urine pH Ur Specific [place] Urine Protein Urine Glucose (UA) Urine Ketones Urine Blood Urine Nitrite Urine Bilirubin Urine Urobilinogen Ur Leukocyte Esterase Urine WBC (Auto) Urine RBC (Auto) U Epithel Cells (Auto) Urine Bacteria (Auto) Urine WBC Clumps Blood Type Antibody Screen 09/14/20 09/14/20 09/14/20 14:00 14:00 14:00 WBC RBC Hgb Hct MCV MCH MCHC RDW Plt Count Add Manual Diff Total Counted Seg Neuts % (Manual) Band Neutrophils % Lymphocytes % (Manual) Monocytes % (Manual) Eosinophils % (Manual) Basophils % (Manual) Metamyelocytes % Myelocytes % Nucleated RBC % Seg Neutrophils # Man Band Neutrophils # Lymphocytes # (Manual) Abs React Lymphs (Man) Monocytes # (Manual) Eosinophils # (Manual) Basophils # (Manual) Metamyelocytes # Myelocytes # Promyelocytes # Blast Cells # WBC Morphology Hypersegmented Neuts Hyposegmented Neuts Hypogranular Neuts Smudge Cells Toxic Granulation Toxic Vacuolation Dohle Bodies Pelger-Huet Anomaly Buck Rods Platelet Estimate Clumped Platelets Plt Clumps, EDTA Large Platelets Giant Platelets Platelet Satelliting Plt Morphology Comment RBC Morphology Dimorphic RBCs Polychromasia Hypochromasia Poikilocytosis Anisocytosis Microcytosis Macrocytosis Spherocytes Pappenheimer Bodies Sickle Cells Target Cells Tear Drop Cells Ovalocytes Helmet Cells [place] Bodies [place] Rings [place] Cells Bite Cells Crenated Cell Elliptocytes Acanthocytes (Spur) Rouleaux Hemoglobin C Crystals Schistocytes Malaria parasites Phil Bodies Hem Pathologist Commnt PT 45.5 H INR 4.89 H APTT ABG pH POC ABG pCO2 POC ABG pO2 POC ABG HCO3 ABG O2 Saturation POC ABG Base Excess ABG Hemoglobin ABG Oxyhemoglobin ABG Methemoglobin ABG Sodium ABG Potassium ABG Chloride ABG Glucose Carboxyhemoglobin FiO2 % Sodium 136 L Potassium 3.8 Chloride 91.3 L Carbon Dioxide 6 L* Anion Gap 43 BUN 15 Creatinine 2.3 H Estimated GFR 26 BUN/Creatinine Ratio 7 Glucose 100 POC Glucose Hemoglobin A1c Lactic Acid Calcium 8.0 L Total Bilirubin AST ALT Alkaline Phosphatase Ammonia 301.0 H Troponin T NT-Pro-B Natriuret Pep Total Protein Albumin Albumin/Globulin Ratio Triglycerides Cholesterol LDL Cholesterol Direct HDL Cholesterol Cholesterol/HDL Ratio Lipase Arterial Blood Glucose Arterial Blood Ionized Calcium Urine Color Urine Turbidity Urine pH Ur Specific [place] Urine Protein Urine Glucose (UA) Urine Ketones Urine Blood Urine Nitrite Urine Bilirubin Urine Urobilinogen Ur Leukocyte Esterase Urine WBC (Auto) Urine RBC (Auto) U Epithel Cells (Auto) Urine Bacteria (Auto) Urine WBC Clumps Blood Type Antibody Screen 09/14/20 09/14/20 09/14/20 14:18 18:08 18:08 WBC RBC Hgb Hct MCV MCH MCHC RDW Plt Count Add Manual Diff Total Counted Seg Neuts % (Manual) Band Neutrophils % Lymphocytes % (Manual) Monocytes % (Manual) Eosinophils % (Manual) Basophils % (Manual) Metamyelocytes % Myelocytes % Nucleated RBC % Seg Neutrophils # Man Band Neutrophils # Lymphocytes # (Manual) Abs React Lymphs (Man) Monocytes # (Manual) Eosinophils # (Manual) Basophils # (Manual) Metamyelocytes # Myelocytes # Promyelocytes # Blast Cells # WBC Morphology Hypersegmented Neuts Hyposegmented Neuts Hypogranular Neuts Smudge Cells Toxic Granulation Toxic Vacuolation Dohle Bodies Pelger-Huet Anomaly Buck Rods Platelet Estimate Clumped Platelets Plt Clumps, EDTA Large Platelets Giant Platelets Platelet Satelliting Plt Morphology Comment RBC Morphology Dimorphic RBCs Polychromasia Hypochromasia Poikilocytosis Anisocytosis Microcytosis Macrocytosis Spherocytes Pappenheimer Bodies Sickle Cells Target Cells Tear Drop Cells Ovalocytes Helmet Cells [place] Bodies [place] Rings Shai Cells Bite Cells Crenated Cell Elliptocytes Acanthocytes (Spur) Rouleaux Hemoglobin C Crystals Schistocytes Malaria parasites Phil Bodies Hem Pathologist Commnt PT INR APTT ABG pH POC ABG pCO2 POC ABG pO2 POC ABG HCO3 ABG O2 Saturation POC ABG Base Excess ABG Hemoglobin ABG Oxyhemoglobin ABG Methemoglobin ABG Sodium ABG Potassium ABG Chloride ABG Glucose Carboxyhemoglobin FiO2 % Sodium Potassium Chloride Carbon Dioxide Anion Gap BUN Creatinine Estimated GFR BUN/Creatinine Ratio Glucose POC Glucose Hemoglobin A1c 6.1 H Lactic Acid 19.80 H* Calcium Total Bilirubin AST ALT Alkaline Phosphatase Ammonia Troponin T NT-Pro-B Natriuret Pep Total Protein Albumin Albumin/Globulin Ratio Triglycerides Cholesterol LDL Cholesterol Direct HDL Cholesterol Cholesterol/HDL Ratio Lipase Arterial Blood Glucose Arterial Blood Ionized Calcium Urine Color Red Urine Turbidity Cloudy Urine pH 7.0 Ur Specific [place] 1.015 Urine Protein >500 Urine Glucose (UA) Neg Urine Ketones Tr Urine Blood Lg Urine Nitrite Neg Urine Bilirubin Neg Urine Urobilinogen 2.0 Ur Leukocyte Esterase Mod Urine WBC (Auto) > 182.0 H Urine RBC (Auto) > 182.0 U Epithel Cells (Auto) 27.0 H Urine Bacteria (Auto) 2+ Urine WBC Clumps 3+ Blood Type Antibody Screen 09/14/20 09/14/20 09/14/20 18:57 18:57 19:56 WBC 24.8 H RBC 4.47 Hgb 13.1 Hct 49.1 H D MCV 110 H MCH 29 MCHC 27 L RDW 17.7 H Plt Count 137 L Add Manual Diff Complete Total Counted 100 Seg Neuts % (Manual) 71.0 H Band Neutrophils % Lymphocytes % (Manual) 14.0 Monocytes % (Manual) 4.0 Eosinophils % (Manual) Basophils % (Manual) Metamyelocytes % 8.0 Myelocytes % 3.0 Nucleated RBC % 1.0 H Seg Neutrophils # Man 17.6 H Band Neutrophils # 0.0 Lymphocytes # (Manual) 3.5 Abs React Lymphs (Man) 0.0 Monocytes # (Manual) 1.0 H Eosinophils # (Manual) 0.0 Basophils # (Manual) 0.0 Metamyelocytes # 2.0 Myelocytes # 0.7 Promyelocytes # 0.0 Blast Cells # 0.0 WBC Morphology Not Reportable Hypersegmented Neuts Not Reportable Hyposegmented Neuts Not Reportable Hypogranular Neuts Not Reportable Smudge Cells Not Reportable Toxic Granulation 2+ Toxic Vacuolation 1+ Dohle Bodies Not Reportable Pelger-Huet Anomaly Not Reportable Buck Rods Not Reportable Platelet Estimate Consistent w auto Clumped Platelets Not Reportable Plt Clumps, EDTA Not Reportable Large Platelets Not Reportable Giant Platelets Not Reportable Platelet Satelliting Not Reportable Plt Morphology Comment Not Reportable RBC Morphology Not Reportable Dimorphic RBCs Not Reportable Polychromasia Few Hypochromasia Not Reportable Poikilocytosis Not Reportable Anisocytosis 1+ Microcytosis Not Reportable Macrocytosis Not Reportable Spherocytes Not Reportable Pappenheimer Bodies Not Reportable Sickle Cells Not Reportable Target Cells Not Reportable Tear Drop Cells Not Reportable Ovalocytes Not Reportable Helmet Cells Not Reportable [place] Bodies Not Reportable [place] Rings Not Reportable [place] Cells Not Reportable Bite Cells Not Reportable Crenated Cell Not Reportable Elliptocytes Not Reportable Acanthocytes (Spur) Not Reportable Rouleaux Not Reportable Hemoglobin C Crystals Not Reportable Schistocytes Not Reportable Malaria parasites Not Reportable Phil Bodies Not Reportable Hem Pathologist Commnt No PT INR APTT ABG pH 6.672 L POC ABG pCO2 54.9 H POC ABG pO2 32.8 L POC ABG HCO3 6.2 ABG O2 Saturation 39.2 POC ABG Base Excess -30.7 ABG Hemoglobin 12.5 ABG Oxyhemoglobin 38.8 L ABG Methemoglobin 0.3 ABG Sodium 138.8 ABG Potassium 4.5 ABG Chloride 102.0 ABG Glucose 55 L Carboxyhemoglobin 0.6 FiO2 % 100.0 Sodium 134 L Potassium 4.8 D Chloride 98.4 Carbon Dioxide 2 L* Anion Gap 38 BUN 17 Creatinine 2.2 H Estimated GFR 27 BUN/Creatinine Ratio 8 Glucose 43 L POC Glucose Hemoglobin A1c Lactic Acid Calcium 8.0 L Total Bilirubin 4.10 H AST 2912 H ALT 1140 H Alkaline Phosphatase 184 H Ammonia Troponin T NT-Pro-B Natriuret Pep Total Protein 6.9 Albumin 2.7 L Albumin/Globulin Ratio 0.6 Triglycerides Cholesterol LDL Cholesterol Direct HDL Cholesterol Cholesterol/HDL Ratio Lipase Arterial Blood Glucose 55 L Arterial Blood Ionized Calcium 4.1 L Urine Color Urine Turbidity Urine pH Ur Specific [place] Urine Protein Urine Glucose (UA) Urine Ketones Urine Blood Urine Nitrite Urine Bilirubin Urine Urobilinogen Ur Leukocyte Esterase Urine WBC (Auto) Urine RBC (Auto) U Epithel Cells (Auto) Urine Bacteria (Auto) Urine WBC Clumps Blood Type Antibody Screen 09/14/20 09/14/20 09/14/20 21:28 21:30 21:39 WBC 23.0 H RBC 3.43 L Hgb 9.9 L D Hct 37.1 D MCV 108 H MCH 29 MCHC 27 L RDW 17.5 H Plt Count 114 L Add Manual Diff Total Counted Seg Neuts % (Manual) Band Neutrophils % Lymphocytes % (Manual) Monocytes % (Manual) Eosinophils % (Manual) Basophils % (Manual) Metamyelocytes % Myelocytes % Nucleated RBC % Seg Neutrophils # Man Band Neutrophils # Lymphocytes # (Manual) Abs React Lymphs (Man) Monocytes # (Manual) Eosinophils # (Manual) Basophils # (Manual) Metamyelocytes # Myelocytes # Promyelocytes # Blast Cells # WBC Morphology Hypersegmented Neuts Hyposegmented Neuts Hypogranular Neuts Smudge Cells Toxic Granulation Toxic Vacuolation Dohle Bodies Pelger-Huet Anomaly Buck Rods Platelet Estimate Clumped Platelets Plt Clumps, EDTA Large Platelets Giant Platelets Platelet Satelliting Plt Morphology Comment RBC Morphology Dimorphic RBCs Polychromasia Hypochromasia Poikilocytosis Anisocytosis Microcytosis Macrocytosis Spherocytes Pappenheimer Bodies Sickle Cells Target Cells Tear Drop Cells Ovalocytes Helmet Cells [place] Bodies [place] Rings [place] Cells Bite Cells Crenated Cell Elliptocytes Acanthocytes (Spur) Rouleaux Hemoglobin C Crystals Schistocytes Malaria parasites Phil Bodies Hem Pathologist Commnt PT INR APTT ABG pH POC ABG pCO2 POC ABG pO2 POC ABG HCO3 ABG O2 Saturation POC ABG Base Excess ABG Hemoglobin ABG Oxyhemoglobin ABG Methemoglobin ABG Sodium ABG Potassium ABG Chloride ABG Glucose Carboxyhemoglobin FiO2 % Sodium Potassium Chloride Carbon Dioxide Anion Gap BUN Creatinine Estimated GFR BUN/Creatinine Ratio Glucose POC Glucose 59 L Hemoglobin A1c Lactic Acid 19.40 H* Calcium Total Bilirubin AST ALT Alkaline Phosphatase Ammonia Troponin T NT-Pro-B Natriuret Pep Total Protein Albumin Albumin/Globulin Ratio Triglycerides Cholesterol LDL Cholesterol Direct HDL Cholesterol Cholesterol/HDL Ratio Lipase Arterial Blood Glucose Arterial Blood Ionized Calcium Urine Color Urine Turbidity Urine pH Ur Specific [place] Urine Protein Urine Glucose (UA) Urine Ketones Urine Blood Urine Nitrite Urine Bilirubin Urine Urobilinogen Ur Leukocyte Esterase Urine WBC (Auto) Urine RBC (Auto) U Epithel Cells (Auto) Urine Bacteria (Auto) Urine WBC Clumps Blood Type Antibody Screen 09/14/20 09/14/20 09/14/20 21:39 21:39 21:39 WBC RBC Hgb Hct MCV MCH MCHC RDW Plt Count Add Manual Diff Total Counted Seg Neuts % (Manual) Band Neutrophils % Lymphocytes % (Manual) Monocytes % (Manual) Eosinophils % (Manual) Basophils % (Manual) Metamyelocytes % Myelocytes % Nucleated RBC % Seg Neutrophils # Man Band Neutrophils # Lymphocytes # (Manual) Abs React Lymphs (Man) Monocytes # (Manual) Eosinophils # (Manual) Basophils # (Manual) Metamyelocytes # Myelocytes # Promyelocytes # Blast Cells # WBC Morphology Hypersegmented Neuts Hyposegmented Neuts Hypogranular Neuts Smudge Cells Toxic Granulation Toxic Vacuolation Dohle Bodies Pelger-Huet Anomaly Buck Rods Platelet Estimate Clumped Platelets Plt Clumps, EDTA Large Platelets Giant Platelets Platelet Satelliting Plt Morphology Comment RBC Morphology Dimorphic RBCs Polychromasia Hypochromasia Poikilocytosis Anisocytosis Microcytosis Macrocytosis Spherocytes Pappenheimer Bodies Sickle Cells Target Cells Tear Drop Cells Ovalocytes Helmet Cells [place] Bodies [place] Rings Shai Cells Bite Cells Crenated Cell Elliptocytes Acanthocytes (Spur) Rouleaux Hemoglobin C Crystals Schistocytes Malaria parasites Phil Bodies Hem Pathologist Commnt PT 98.0 H INR 13.56 H* APTT 115.3 H* ABG pH POC ABG pCO2 POC ABG pO2 POC ABG HCO3 ABG O2 Saturation POC ABG Base Excess ABG Hemoglobin ABG Oxyhemoglobin ABG Methemoglobin ABG Sodium ABG Potassium ABG Chloride ABG Glucose Carboxyhemoglobin FiO2 % Sodium 132 L Potassium 4.7 Chloride 95.4 L Carbon Dioxide 6 L* Anion Gap 35 BUN 16 Creatinine 2.7 H Estimated GFR 21 BUN/Creatinine Ratio 6 Glucose 353 H POC Glucose Hemoglobin A1c Lactic Acid Calcium 6.3 L D Total Bilirubin 2.70 H AST 4007 H ALT 1583 H Alkaline Phosphatase 139 H Ammonia Troponin T NT-Pro-B Natriuret Pep Total Protein 4.4 L D Albumin 2.2 L Albumin/Globulin Ratio 1.0 Triglycerides Cholesterol LDL Cholesterol Direct HDL Cholesterol Cholesterol/HDL Ratio Lipase Arterial Blood Glucose Arterial Blood Ionized Calcium Urine Color Urine Turbidity Urine pH Ur Specific [place] Urine Protein Urine Glucose (UA) Urine Ketones Urine Blood Urine Nitrite Urine Bilirubin Urine Urobilinogen Ur Leukocyte Esterase Urine WBC (Auto) Urine RBC (Auto) U Epithel Cells (Auto) Urine Bacteria (Auto) Urine WBC Clumps Blood Type O POSITIVE Antibody Screen Negative 09/14/20 22:37 WBC RBC Hgb Hct MCV MCH MCHC RDW Plt Count Add Manual Diff Total Counted Seg Neuts % (Manual) Band Neutrophils % Lymphocytes % (Manual) Monocytes % (Manual) Eosinophils % (Manual) Basophils % (Manual) Metamyelocytes % Myelocytes % Nucleated RBC % Seg Neutrophils # Man Band Neutrophils # Lymphocytes # (Manual) Abs React Lymphs (Man) Monocytes # (Manual) Eosinophils # (Manual) Basophils # (Manual) Metamyelocytes # Myelocytes # Promyelocytes # Blast Cells # WBC Morphology Hypersegmented Neuts Hyposegmented Neuts Hypogranular Neuts Smudge Cells Toxic Granulation Toxic Vacuolation Dohle Bodies Pelger-Huet Anomaly Buck Rods Platelet Estimate Clumped Platelets Plt Clumps, EDTA Large Platelets Giant Platelets Platelet Satelliting Plt Morphology Comment RBC Morphology Dimorphic RBCs Polychromasia Hypochromasia Poikilocytosis Anisocytosis Microcytosis Macrocytosis Spherocytes Pappenheimer Bodies Sickle Cells Target Cells Tear Drop Cells Ovalocytes Helmet Cells [place] Bodies [place] Rings [place] Cells Bite Cells Crenated Cell Elliptocytes Acanthocytes (Spur) Rouleaux Hemoglobin C Crystals Schistocytes Malaria parasites Phil Bodies Hem Pathologist Commnt PT INR APTT ABG pH 6.716 L POC ABG pCO2 33.0 POC ABG pO2 77.5 L POC ABG HCO3 4.1 ABG O2 Saturation 88.0 POC ABG Base Excess -31.0 ABG Hemoglobin 10.9 L ABG Oxyhemoglobin 87.6 L ABG Methemoglobin 0 ABG Sodium 135.7 L ABG Potassium 4.6 H ABG Chloride 103.0 ABG Glucose 187 H Carboxyhemoglobin 0.4 L FiO2 % 100.0 Sodium Potassium Chloride Carbon Dioxide Anion Gap BUN Creatinine Estimated GFR BUN/Creatinine Ratio Glucose POC Glucose Hemoglobin A1c Lactic Acid Calcium Total Bilirubin AST ALT Alkaline Phosphatase Ammonia Troponin T NT-Pro-B Natriuret Pep Total Protein Albumin Albumin/Globulin Ratio Triglycerides Cholesterol LDL Cholesterol Direct HDL Cholesterol Cholesterol/HDL Ratio Lipase Arterial Blood Glucose 187 H Arterial Blood Ionized Calcium 3.8 L Urine Color Urine Turbidity Urine pH Ur Specific [place] Urine Protein Urine Glucose (UA) Urine Ketones Urine Blood Urine Nitrite Urine Bilirubin Urine Urobilinogen Ur Leukocyte Esterase Urine WBC (Auto) Urine RBC (Auto) U Epithel Cells (Auto) Urine Bacteria (Auto) Urine WBC Clumps Blood Type Antibody Screen
--- NOTE | 2020-09-15 05:52 | Event Note ---
Date: 09/15/20 Patient coded 4 times. Multiple AP, atropine, IV fluid and bicarb was given. Patient was bradycardic try to pace the patient but not captured. Prognosis is extremely poor but patient family is in denial. They want to do everything we will continue the current management
[2020-09-15 06:02] LABS: Hemoglobin 7.9 gm/dl (10.1-14.3); Mean Corpuscular HGB Conc 26 % (30-34); Red Blood Count 2.72 M/mm3 (3.65-5.03); Red Cell Distribution Width 17.2 % (13.2-15.2)
[2020-09-15 06:03] LABS: Hematocrit 30.1 % (30.3-42.9); Mean Corpuscular Volume 111 fl (79-97); Platelet Count 79 K/mm3 (140-440)
[2020-09-15 06:16] LABS: Albumin 1.9 g/dL (3.9-5); Calcium 8.4 mg/dL (8.4-10.2)
[2020-09-15 06:29] LABS: INR > 17.67 (0.87-1.13); Partial Thromboplastin Time 145.9 Sec. (24.2-36.6)
[2020-09-15 06:30] LABS: Fibrinogen 60 mg/dl (211-480)
[2020-09-15] MEDS: PANTOPRAZOLE 80 MG in SODIUM CHLORIDE 0.9% 100 ML IV SCH (06:41)
[2020-09-15] MEDS: VASOPRESSIN 20 UNIT in SODIUM CHLORIDE 0.9% 100 ML IV SCH (06:41)
[2020-09-15] MEDS ORDERED: NORepinephrine/NS 8 MG-250 ML 8 MG/250 ML INFUS..BTL IV SCH (07:00)
[2020-09-15] MEDS ORDERED: CALCIUM CHLORIDE 1,000 MG/10 ML SYRINGE IV ONE (07:02)
[2020-09-15] MEDS ORDERED: SODIUM BICARB 8.4% 50 MEQ/50 ML SYRINGE IV ONE (07:02)
[2020-09-15] MEDS ORDERED: EPINEPHrine 1 MG/10 ML SYRINGE ONE (07:02)
[2020-09-15] MEDS ORDERED: NALOXONE 2 MG/2 ML INJ ONE (07:02)
[2020-09-15] MEDS ORDERED: DEXTROSE 50% IN WATER (25GM) 50 ML SYRINGE IV ONE (07:02)
[2020-09-15] MEDS ORDERED: ATROPINE 0.1% (1 MG/10 ML) CARDIAC SYRINGE ONE (07:02)
[2020-09-15] MEDS ORDERED: EPINEPHrine 30 MG/30 ML INJ IV ONE ×2 (07:02)
--- NOTE | 2020-09-15 07:16 | Death Note ---
Note Date of : 09/15/20 Time of : 07:08 - Preliminary Cause of (problem) (1) Acute respiratory failure Preliminary cause of (2) Cardiac arrest Preliminary cause of Patient is coded 6 times. Multiple AP atropine bicarb and calcium gluconate is given. Patient is not able to hold BP and pulse. Is discussed with the family. Daughters decided to let the patient go an extra of the code. Patient at 7:08 AM on 09/15/2020 due to cardiopulmonary arrest acute respiratory failure sepsis hypertension rectal bleeding pneumonia. Prognosis is very poor. Family at the bedside (3) Coagulopathy Preliminary cause of
[2020-09-15 09:14] VITALS: BP 158/63
--- NOTE | 2020-09-15 09:59 | Death Summary ---
Summary - Providers Date of service: 09/15/20 Consults: 09/14/20 17:30 Consult to Physician [CONS] Routine Comment: Consulting Provider: JANET AYERS Physician Instructions: Reason For Exam: Acute respiratory failure with hypoxia/Sepsis 09/14/20 21:47 Consult to Physician [CONS] Routine Comment: Consulting Provider: ROYAL BRUMFIELD Physician Instructions: Reason For Exam: rectal bleeding 09/14/20 23:11 Consult to Physician [CONS] Routine Comment: Consulting Provider: LATHA WALDEN Physician Instructions: Reason For Exam: DIC 09/14/20 23:16 Consult to Physician [CONS] Routine Comment: Consulting Provider: VICKY ROTH Physician Instructions: Reason For Exam: Sepsis Attending: RENNY IGLESIAS MD - summary Date of admission: 09/14/20 14:11 Date of : 09/15/20 Procedures/treatments rendered: This is 65-year-old female with HTN, CAD s/p CABG, COPD presents to the emergency department for severe shortness of breath as per daughter for approximately 3 days prior to presentation. Patient has been chronically short of breath for 2 months but it is worse over the past 3 days with shortness of breath with minimal exertion and orthopnea. Patient not taking COVID-19 vaccination as per the daughter patient has loss of smell and taste, generalized weakness. Upon arrival to EMS patient was hypoglycemic with a blood glucose of 46 and giving D50 W with recovery. In the emergency room patient was very lethargic and altered when short of breath and the patient was intubated by the ED physician and started on Levophed for hypotension after failing BiPAP. Patient was admitted to the hospital service to the ICU with consults to CCM and heme-onc for transaminitis and severe coagulopathy with shock liver, sepsis, lactic acidosis s/p cardiac arrest and acute kidney injury. Patient was in the ICU receiving vasopressors, antibiotics on mechanical ventilation with right lower lobe pneumonia. Patient proceeded to have several cardiac arrests receiving several rounds of ACLS, maxed on vasopressors and mechanical ventilation. Patient coded approximately 6 times before family decision was made to and resuscitation on efforts. Time of was called at 708 by night hospitalist. Family was informed. And family did visit at bedside. S/p multiple cardiac arrest Acute hypoxic respiratory failure Sepsis Shock liver Lactic acidosis Acute kidney injury Hemorrhagic shock - Final diagnosis (1) Acute respiratory failure Note: Final diagnosis: (2) Acute respiratory failure with hypoxia Note: Final diagnosis: (3) Cardiac arrest Note: Final diagnosis: (4) Coagulopathy Note: Final diagnosis: (5) Congestive heart failure Note: Final diagnosis: (6) Elevated liver enzymes Note: Final diagnosis: (7) Metabolic acidosis Note: Final diagnosis: (8) Renal insufficiency Note: Final diagnosis: (9) Right lower lobe pneumonia Note: Final diagnosis: (10) Septic shock Note: Final diagnosis: (11) Suspected COVID-19 virus infection Note: Final diagnosis:
[2020-09-15 10:27] LABS: Band Neutrophils # (Manual) 1.5 K/mm3; Macrocytosis 1+; Myelocytes # (Manual) 0.9 K/mm3; Total Cells Counted 100
[2020-09-15 10:28] LABS: Anisocytosis 1+; Platelet Estimate Consistent w Auto
--- NOTE | 2020-09-16 17:33 | Electrocardiograph Report ---
[facility] Test Date: 2020-09-14 Test Time: 10:38:42 Pat Name: MAY MAURER Department: Room: A262 Gender: F Refining Equipment Operator: MAHENDRA : [id number] Requested By: MARE HALL Order Number: [id number] Reading MD: Aftab Adan Measurements Intervals [place] Rate: 97 P: MA: QRS: 90 QRSD: 134 T: 107 QT: 434 QTc: 551 Interpretive Statements Atrial fibrillation Nonspecific intraventricular conduction delay Nonspecific T abnormalities, lateral leads No previous ECG available for comparison Electronically Signed On 09-16-2020 17:32:48 EDT by Aftab Adan
== END 2020-09-15 10:30 | DRG 871 ==
LOC: ED 09:22 → CC1 14:11
PROVIDERS: ADMIT Internal Medicine; ATTEND Internal Medicine
PROC: 5A09357 Assistance with Respiratory Ventilation, Less than 24 Consecutive Hours, Continuous Positive Airway Pressure (ICD-10-PCS; principal; 2020-09-14)
PROC: 0BH17EZ Insertion of Endotracheal Airway into Trachea, Via Natural or Artificial Opening (ICD-10-PCS; 2020-09-14)
PROC: 5A1935Z Respiratory Ventilation, Less than 24 Consecutive Hours (ICD-10-PCS; 2020-09-14)
PROC: 4A033R1 Measurement of Arterial Saturation, Peripheral, Percutaneous Approach (ICD-10-PCS; 2020-09-14)
PROC: 06HY33Z Insertion of Infusion Device into Lower Vein, Percutaneous Approach (ICD-10-PCS; 2020-09-14)
PROC: B54BZZA Ultrasonography of Right Lower Extremity Veins, Guidance (ICD-10-PCS; 2020-09-14)
PROC: 5A12012 Performance of Cardiac Output, Single, Manual (ICD-10-PCS; 2020-09-14)
DX: A41.9 Sepsis, unspecified organism (principal); R65.21 Severe sepsis with septic shock; J18.9 Pneumonia, unspecified organism; J96.02 Acute respiratory failure with hypercapnia; J96.01 Acute respiratory failure with hypoxia; D65 Disseminated intravascular coagulation [defibrination syndrome]; K72.00 Acute and subacute hepatic failure without coma; E87.1 Hypo-osmolality and hyponatremia; J44.0 Chronic obstructive pulmonary disease with (acute) lower respiratory infection; N17.9 Acute kidney failure, unspecified; I46.9 Cardiac arrest, cause unspecified; R74.8 Abnormal levels of other serum enzymes; Z20.822 Contact with and (suspected) exposure to COVID-19; I95.9 Hypotension, unspecified; R74.01 Elevation of levels of liver transaminase levels; Z88.0 Allergy status to penicillin; I25.10 Atherosclerotic heart disease of native coronary artery without angina pectoris; I11.0 Hypertensive heart disease with heart failure; I50.9 Heart failure, unspecified; F17.210 Nicotine dependence, cigarettes, uncomplicated; E11.649 Type 2 diabetes mellitus with hypoglycemia without coma; Z95.1 Presence of aortocoronary bypass graft; R57.8 Other shock
CPT/HCPCS: 31500; 36415; 36600; 71045; 80048; 80053; 80061; 81001; 82140; 82805; 82962; 83036; 83690; 83735; 83880; 84100; 84484; 85007; 85014; 85018; 85025; 85027; 85379; 85384; 85610; 85730; 86850; 86900; 86901; 87040; 87070; 87205; 93005; 94002; 96361; 96365; 96366; 96375; 99291; G0378; C9113; J0171; J0330; J0461; J0692; J1100; J1265; J1956; J2310; J2370; J2704; J3430; J7030; J7040; J7050; J7070; P9017